=== PATIENT | male | born 1980 | race African-American/Black ===

== ENCOUNTER 2019-07-18 07:25 | Emergency (ER) | payer MEDICAID, OTHER | END 2019-07-18 08:18 | disposition left against medical advice (07) | LOC: ER 07:25 | DX: R07.9 Chest pain, unspecified (principal); Z53.21 Procedure and treatment not carried out due to patient leaving prior to being seen by health care provider ==

== ENCOUNTER 2019-09-22 04:00 | Emergency (ER) | payer MEDICAID ==
[~2019-09-22] VITALS: Ht 175.3 cm; Wt 118.0 kg
[2019-09-22] MEDS ORDERED: DICYCLOMINE 10 MG/5 ML ORAL SYR PO STA (04:17)
[2019-09-22] MEDS ORDERED: SODIUM CHLORIDE 0.9% 1,000 ML IV ONE (04:17)
[2019-09-22] MEDS ORDERED: ONDANSETRON HCL 4MG/2ML INJ IV STA (04:17)
[2019-09-22] MEDS ORDERED: KETOROLAC 15MG/ML VIAL IV ONE (04:30)
[2019-09-22 04:34] LABS: BASOPHILS % 0.5 % (0.0-2.0); EOSINOPHILS % 1.6 % (0.0-5.0); HEMATOCRIT. 48.3 % (42.0-52.0); HEMOGLOBIN. 16.7 g/dL (14.0-18.0); MEAN CORPUSCULAR HEMOGLOBIN 31.9 pg (28.0-32.0); MEAN CORPUSCULAR VOLUME 92.2 fL (80.0-94.0); MEAN PLATELET VOLUME 7.7 fl (7.4-10.4); MONOCYTES % 8.9 % (2.0-8.0); PLATELET 247 x1000/uL (130-400); RED BLOOD CELL COUNT 5.24 mill/uL (4.7-6.1); RED CELL DISTRIBUTION WIDTH 13.2 % (11.6-14.6)
[2019-09-22 04:48] LABS: CHLORIDE 109 mEq/L (98-107)
[2019-09-22 04:52] LABS: ETHANOL BLOOD < 10 mg/dL
[2019-09-22] MEDS ORDERED: MORPHINE SULFATE 4 MG/ML CPJ (NOT FOR IM USE) IV ONE ×2 (06:15→07:15)
[2019-09-22 07:09] LABS: CLARITY URINE CLEAR (CLEAR); COLOR URINE YELLOW (YELLOW); KETONES URINE NEGATIVE (NEGATIVE); LEUKOCYTE ESTERASE URINE 2+ (NEGATIVE); NITRITE URINE NEGATIVE (NEGATIVE); OCCULT BLOOD URINE NEGATIVE (NEGATIVE); PH URINE >=9.0 (4.5-8.0); PROTEIN URINE TRACE (NEGATIVE); SPECIFIC GRAVITY URINE 1.024 (1.005-1.030)
[2019-09-22 07:42] LABS: *AMPHETAMINES SCREEN URINE NEGATIVE (NEGATIVE); *BARBITURATES SCREEN URINE NEGATIVE (NEGATIVE); *BENZODIAZEPINES SCREEN URINE NEGATIVE (NEGATIVE); *COCAINE SCREEN URINE NEGATIVE (NEGATIVE)
[2019-09-22 07:43] LABS: CANNABINOID URINE SCREEN PRESUMTIVE POSITIVE (NEGATIVE); METHADONE URINE SCREEN NEGATIVE (NEGATIVE); OPIATES URINE SCREEN NEGATIVE (NEGATIVE); PHENCYCLIDINE URINE SCREEN NEGATIVE (NEGATIVE)
[2019-09-22] MEDS ORDERED: ONDANSETRON HCL 4MG/2ML INJ IV ONE (08:00)
[2019-09-22] MEDS ORDERED: MORPHINE SULFATE 2 MG/ML CPJ (NOT FOR IM USE) IV ONE (08:00)
[2019-09-22] MEDS ORDERED: ONDANSETRON HCL 4MG/2ML INJ IV NR (08:15)
[2019-09-22] MEDS ORDERED: MORPHINE SULFATE 2 MG/ML CPJ (NOT FOR IM USE) IV NR (08:15)
[2019-09-22] MEDS ORDERED: HYDROCODONE/ACETAMINOPHEN 10/325MG TABLET PO PRN (10:00)
[2019-09-22] MEDS ORDERED: DEXT 5%/0.45% NACL 1000ML 1,000 ML IV SCH (10:00)
[2019-09-22] MEDS ORDERED: ONDANSETRON HCL 4MG/2ML INJ IV PRN (10:00)
[2019-09-22] MEDS ORDERED: ACETAMINOPHEN 325MG TABLET PO PRN (10:00)
[2019-09-22] MEDS ORDERED: LEVOFLOXACIN 500MG PREMIX 100ML IV NR (10:15)
[2019-09-22] MEDS ORDERED: METRONIDAZOLE 500 MG PREMIX 100 ML IV NR (10:15)
[2019-09-22] MEDS ORDERED: HYDROMORPHONE HCL/PF 2MG/ML CPJ IV PRN (11:15)
[2019-09-22] MEDS ORDERED: MORPHINE SULFATE 2 MG/ML CPJ (NOT FOR IM USE) IV PRN (12:00)
[2019-09-22] MEDS ORDERED: LEVO500T2 MT (13:45)
[2019-09-22] MEDS ORDERED: METR500T MT (13:45)
[2019-09-22 13:52] VITALS: BP 131/69
[2019-09-22] MEDS ORDERED: METRONIDAZOLE 500 MG PREMIX 100 ML IV SCH (18:00)
[2019-09-23] MEDS ORDERED: LEVOFLOXACIN 500MG PREMIX 100 ML IV SCH (09:00)
== END 2019-09-22 14:26 | disposition left against medical advice (07) ==
LOC: ER 04:00 → ENRESERV 19:21 → CANRESERV 19:21 → CANBEDREQ 09-23 00:25
DX: K80.20 Calculus of gallbladder without cholecystitis without obstruction (principal); F12.90 Cannabis use, unspecified, uncomplicated; E87.8 Other disorders of electrolyte and fluid balance, not elsewhere classified; E66.9 Obesity, unspecified; Z68.38 Body mass index [BMI] 38.0-38.9, adult
CPT/HCPCS: 36415; 76705; 78227; 80053; 80305; 80320; 81003; 83690; 85025; 96365; 96368; 96375; 96376; 99285; A9537; J1885; J1956; J2270; J2405; J3490; J7030; G0480

== ENCOUNTER 2019-09-23 07:16 | Inpatient (IN) | payer MEDICAID ==
[~2019-09-23] VITALS: Ht 175.3 cm; Wt 122.5 kg
[~2019-09-23 07:16] MED LIST: LEVO500T2 MT; METR500T MT
[2019-09-23] MEDS ORDERED: SODIUM CHLORIDE 0.9% 1,000 ML IV ONE (08:39)
[2019-09-23] MEDS ORDERED: KETOROLAC 15MG/ML VIAL IV ONE (08:45)
[2019-09-23] MEDS ORDERED: METOCLOPRAMIDE HCL 10MG/2ML VIAL IV ONE (08:45)
[2019-09-23 09:40] LABS: BASOPHILS % 0.6 % (0.0-2.0); EOSINOPHILS % 0.3 % (0.0-5.0); HEMATOCRIT. 46.5 % (42.0-52.0); HEMOGLOBIN. 16.2 g/dL (14.0-18.0); LYMPHOCYTES % 9.5 % (20.0-50.0); MEAN CORPUSCULAR VOLUME 91.8 fL (80.0-94.0); MEAN PLATELET VOLUME 8.4 fl (7.4-10.4); MONOCYTES % 10.5 % (2.0-8.0); NEUTROPHILS % 79.1 % (40.0-76.0); PLATELET 245 x1000/uL (130-400); RED BLOOD CELL COUNT 5.06 mill/uL (4.7-6.1); RED CELL DISTRIBUTION WIDTH 13.3 % (11.6-14.6)
[2019-09-23 09:48] LABS: CHLORIDE 105 mEq/L (98-107)
[2019-09-23 10:30] LABS: CLARITY URINE CLEAR (CLEAR); COLOR URINE YELLOW (YELLOW); KETONES URINE 1+ (NEGATIVE); LEUKOCYTE ESTERASE URINE TRACE (NEGATIVE); NITRITE URINE NEGATIVE (NEGATIVE); OCCULT BLOOD URINE NEGATIVE (NEGATIVE); PH URINE >=9.0 (4.5-8.0); PROTEIN URINE NEGATIVE (NEGATIVE); SPECIFIC GRAVITY URINE 1.018 (1.005-1.030)
[2019-09-23] MEDS ORDERED: ACETAMINOPHEN 325MG TABLET PO PRN (12:45)
[2019-09-23] MEDS ORDERED: ONDANSETRON HCL 4MG/2ML INJ IV PRN (12:45)
[2019-09-23] MEDS ORDERED: LEVOFLOXACIN 500MG PREMIX 100 ML IV SCH (13:45)
[2019-09-23] MEDS: DEXT 5%/0.45% NACL 1000ML 1,000 ML IV SCH (13:50)
[2019-09-23] MEDS ORDERED: METRONIDAZOLE 500 MG PREMIX 100 ML IV SCH (14:00)
[2019-09-23] MEDS ORDERED: IOHEXOL-300 100 ML BOTTLE ONE (15:07)
[2019-09-23 22:40] VITALS: BP 145/66
[2019-09-23] MEDS: METRONIDAZOLE 500 MG PREMIX 100 ML IV SCH (23:35)
[2019-09-23] MEDS: METOCLOPRAMIDE HCL 10MG/2ML VIAL IV SCH (23:35)
[2019-09-24] VITALS: BP 130/85
[2019-09-24] MEDS: MORPHINE SULFATE 2 MG/ML CPJ (NOT FOR IM USE) IV PRN ×2 (03:07→16:52)
[2019-09-24 04:00] VITALS: BP 140/88
[2019-09-24] MEDS: METOCLOPRAMIDE HCL 10MG/2ML VIAL IV SCH ×3 (05:46→17:24)
[2019-09-24] MEDS: METRONIDAZOLE 500 MG PREMIX 100 ML IV SCH ×2 (06:12→17:23)
[2019-09-24 07:03] LABS: BASOPHILS % 0.2 % (0.0-2.0); EOSINOPHILS % 1.3 % (0.0-5.0); HEMATOCRIT. 42.1 % (42.0-52.0); HEMOGLOBIN. 14.7 g/dL (14.0-18.0); LYMPHOCYTES % 12.3 % (20.0-50.0); MEAN CORPUSCULAR HEMOGLOBIN 32.4 pg (28.0-32.0); MEAN CORPUSCULAR VOLUME 92.5 fL (80.0-94.0); MONOCYTES % 14.3 % (2.0-8.0); NEUTROPHILS % 71.9 % (40.0-76.0); PLATELET 204 x1000/uL (130-400); RED BLOOD CELL COUNT 4.55 mill/uL (4.7-6.1); RED CELL DISTRIBUTION WIDTH 13.2 % (11.6-14.6)
[2019-09-24 07:04] LABS: CHLORIDE 106 mEq/L (98-107)
[2019-09-24 08:00] VITALS: BP 123/74
[2019-09-24] MEDS: PANTOPRAZOLE SODIUM 40 MG/VIAL IV SCH (09:20)
[2019-09-24] MEDS ORDERED: POTASSIUM CHLORIDE 20MEQ TABLET SR PO SCH ×2 (10:00→13:00)
[2019-09-24] MEDS ORDERED: LEVOFLOXACIN 500MG PREMIX 100 ML IV SCH (11:00)
[2019-09-24 12:00] VITALS: BP 115/70
[2019-09-24] MEDS ORDERED: LACTULOSE 20G/30ML UDC PO SCH (12:45)
[2019-09-24 16:00] VITALS: BP 110/68
[2019-09-24] MEDS: DEXT 5%/0.45% NACL 1000ML 1,000 ML IV SCH (16:08)
[2019-09-24 20:38] VITALS: BP 98/51
[2019-09-25 00:16] VITALS: BP 99/56
[2019-09-25] MEDS: METOCLOPRAMIDE HCL 10MG/2ML VIAL IV SCH ×4 (00:57→18:00)
[2019-09-25] MEDS: METRONIDAZOLE 500 MG PREMIX 100 ML IV SCH ×3 (01:59→18:00)
[2019-09-25 04:30] VITALS: BP 97/63
[2019-09-25 07:51] LABS: HEMATOCRIT. 44.2 % (42.0-52.0); HEMOGLOBIN. 15.6 g/dL (14.0-18.0); MEAN CORPUSCULAR HEMOGLOBIN 32.8 pg (28.0-32.0); MEAN PLATELET VOLUME 7.9 fl (7.4-10.4); PLATELET 217 x1000/uL (130-400); RED BLOOD CELL COUNT 4.75 mill/uL (4.7-6.1)
[2019-09-25 08:00] VITALS: BP 112/68
[2019-09-25 08:01] LABS: CHLORIDE 105 mEq/L (98-107)
[2019-09-25] MEDS: PANTOPRAZOLE SODIUM 40 MG/VIAL IV SCH (09:04)
[2019-09-25 12:00] VITALS: BP 109/67
[2019-09-25] MEDS ORDERED: POTASSIUM CHLORIDE 20MEQ TABLET SR PO SCH (12:00)
[2019-09-25 12:06] LABS: PLATELET ESTIMATE NORMAL
[2019-09-25] MEDS: LEVOFLOXACIN 500MG PREMIX 100 ML IV SCH (13:20)
[2019-09-25] MEDS: DEXT 5%/0.45% NACL KCL 20MEQ/L 1,000 ML IV SCH (15:38)
[2019-09-25] MEDS ORDERED: LIDOCAINE HCL 1% 20ML VIAL (Pyxis) INJ ONE (15:46)
[2019-09-25] MEDS ORDERED: BUPIVACAINE HCL/PF 0.5% (5MG/ML) 10ML ONE (15:46)
[2019-09-25] MEDS ORDERED: BACITRACIN 50,000 UNITS/VIAL ONE (15:46)
[2019-09-25 16:00] VITALS: BP 102/68
[2019-09-25] MEDS ORDERED: SKIN ADHESIVE 0.7 GM EA TOP ONE (17:03)
[2019-09-25] MEDS ORDERED: ROCURONIUM BROMIDE 10MG/ML VIAL 5ML IV ONE (17:08)
[2019-09-25] MEDS ORDERED: NEOSTIGMINE METHYLSULFATE 1MG/ML 10 ML VIAL ONE (17:08)
[2019-09-25] MEDS ORDERED: PROPOFOL 200MG/20ML VIAL IV ONE (17:08)
[2019-09-25] MEDS ORDERED: FENTANYL CITRATE/PF 50MCG/ML 2ML VIAL ONE (17:08)
[2019-09-25] MEDS ORDERED: GLYCOPYRROLATE 0.2 MG/ML 2ML VIAL ONE (17:09)
[2019-09-25] MEDS ORDERED: MIDAZOLAM HCL 2 MG/2 ML VIAL ONE (17:09)
[2019-09-25] MEDS ORDERED: ONDANSETRON HCL 4MG/2ML INJ ONE (17:37)
[2019-09-25] MEDS ORDERED: HYDROMORPHONE HCL/PF 2MG/ML (OR) ONE (17:37)
[2019-09-25] MEDS ORDERED: DEXAMETHASONE 4MG/ML 1ML VIAL ONE (17:37)
[2019-09-25] MEDS ORDERED: LABETALOL 5MG/ML SYR 20 MG/4 ML SYRINGE IV PRN (19:00)
[2019-09-25] MEDS ORDERED: ONDANSETRON HCL 4MG/2ML INJ IV PRN (19:00)
[2019-09-25] MEDS ORDERED: MEPERIDINE HCL/PF 25MG/ML CPJ IV PRN (19:00)
[2019-09-25] MEDS ORDERED: HYDROMORPHONE HCL/PF 2MG/ML CPJ IV PRN (19:00)
[2019-09-25 20:00] VITALS: BP 122/75
[2019-09-25] MEDS: MORPHINE SULFATE 2 MG/ML CPJ (NOT FOR IM USE) IV PRN (22:16)
[2019-09-26] VITALS: BP 111/63
[2019-09-26] MEDS: METOCLOPRAMIDE HCL 10MG/2ML VIAL IV SCH ×5 (02:13→23:02)
[2019-09-26] MEDS: METRONIDAZOLE 500 MG PREMIX 100 ML IV SCH ×3 (02:16→17:46)
[2019-09-26] MEDS: MORPHINE SULFATE 2 MG/ML CPJ (NOT FOR IM USE) IV PRN ×5 (03:39→21:12)
[2019-09-26 04:40] VITALS: BP 110/61
[2019-09-26 08:00] VITALS: BP 136/70
[2019-09-26] MEDS: FAMOTIDINE 20MG/2ML VIAL IV SCH ×2 (08:47→21:12)
[2019-09-26] MEDS: DEXT 5%/0.45% NACL KCL 20MEQ/L 1,000 ML IV SCH ×3 (11:55→21:21)
[2019-09-26] MEDS: LEVOFLOXACIN 500MG PREMIX 100 ML IV SCH (11:55)
[2019-09-26 12:00] VITALS: BP 127/71
[2019-09-26 15:54] LABS: HEMATOCRIT. 45.2 % (42.0-52.0); HEMOGLOBIN. 15.7 g/dL (14.0-18.0); MEAN CORPUSCULAR HEMOGLOBIN 32.1 pg (28.0-32.0); MEAN CORPUSCULAR VOLUME 92.7 fL (80.0-94.0); MEAN PLATELET VOLUME 7.7 fl (7.4-10.4); PLATELET 268 x1000/uL (130-400); RED BLOOD CELL COUNT 4.88 mill/uL (4.7-6.1); RED CELL DISTRIBUTION WIDTH 13.1 % (11.6-14.6)
[2019-09-26 15:59] LABS: CHLORIDE 102 mEq/L (98-107)
[2019-09-26 16:56] VITALS: BP 115/61
[2019-09-26 17:49] LABS: PLATELET ESTIMATE NORMAL
[2019-09-26 20:00] VITALS: BP 110/62
[2019-09-27] VITALS: BP 116/71
[2019-09-27] MEDS: MORPHINE SULFATE 2 MG/ML CPJ (NOT FOR IM USE) IV PRN ×3 (01:32→09:31)
[2019-09-27] MEDS: METRONIDAZOLE 500 MG PREMIX 100 ML IV SCH ×2 (02:24→09:30)
[2019-09-27 04:00] VITALS: BP 123/65
[2019-09-27] MEDS: METOCLOPRAMIDE HCL 10MG/2ML VIAL IV SCH (05:58)
[2019-09-27 07:03] LABS: BASOPHILS % 0.5 % (0.0-2.0); EOSINOPHILS % 0.6 % (0.0-5.0); HEMATOCRIT. 43.3 % (42.0-52.0); HEMOGLOBIN. 15.1 g/dL (14.0-18.0); LYMPHOCYTES % 14.2 % (20.0-50.0); MEAN CORPUSCULAR HEMOGLOBIN 31.9 pg (28.0-32.0); MEAN CORPUSCULAR VOLUME 91.5 fL (80.0-94.0); MEAN PLATELET VOLUME 8.3 fl (7.4-10.4); MONOCYTES % 12.5 % (2.0-8.0); NEUTROPHILS % 72.2 % (40.0-76.0); PLATELET 279 x1000/uL (130-400); RED BLOOD CELL COUNT 4.73 mill/uL (4.7-6.1); RED CELL DISTRIBUTION WIDTH 12.7 % (11.6-14.6)
[2019-09-27 07:26] LABS: CHLORIDE 103 mEq/L (98-107)
[2019-09-27 08:00] VITALS: BP 128/65
[2019-09-27] MEDS: FAMOTIDINE 20MG/2ML VIAL IV SCH (09:30)
[2019-09-27 11:37] VITALS: BP 128/65
== END 2019-09-27 12:26 | disposition home or self-care (01) | DRG 263 ==
LOC: ER 07:16 → EDBEDREQTM 11:19 → EDBEDREQ 11:19 → EDBEDREQTM 12:08 → EDBEDREQSVC 12:08 → 6EST 12:27 → EDBEDREQTM 12:30 → EDBEDREQ 12:30 → ENRESERV 20:48 → 6EST 23:16
PROVIDERS: ADMIT Internal Medicine; ATTEND Internal Medicine
PROC: 0FT44ZZ Resection of Gallbladder, Percutaneous Endoscopic Approach (ICD-10-PCS; principal; 2019-09-25)
DX: K80.00 Calculus of gallbladder with acute cholecystitis without obstruction (principal); R16.0 Hepatomegaly, not elsewhere classified; F12.90 Cannabis use, unspecified, uncomplicated; J45.909 Unspecified asthma, uncomplicated; F17.210 Nicotine dependence, cigarettes, uncomplicated; E66.9 Obesity, unspecified; Z79.899 Other long term (current) drug therapy; Z79.2 Long term (current) use of antibiotics; Z71.3 Dietary counseling and surveillance; Z68.39 Body mass index [BMI] 39.0-39.9, adult; Z03.818 Encounter for observation for suspected exposure to other biological agents ruled out
CPT/HCPCS: 36415; 74177; 76705; 80048; 80053; 80076; 81003; 82248; 85025; 87070; 87075; 88304; 96365; 99285; C9113; J1100; J1170; J1885; J1956; J2250; J2270; J2405; J2704; J2710; J2765; J3010; J3490; J7030; Q9967; U0003-CS

== ENCOUNTER 2019-12-02 07:03 | Emergency (ER) | payer MEDICAID ==
[~2019-12-02] VITALS: Ht 180.3 cm; Wt 115.0 kg
[2019-12-02] MEDS ORDERED: KETOROLAC 30MG/ML VIAL IV STA (08:15)
[2019-12-02] MEDS ORDERED: SODIUM CHLORIDE 0.9% 1,000 ML IV ONE (08:15)
[2019-12-02 08:45] LABS: BASOPHILS % 0.3 % (0.0-2.0); EOSINOPHILS % 0.5 % (0.0-5.0); HEMATOCRIT. 48.3 % (42.0-52.0); HEMOGLOBIN. 16.4 g/dL (14.0-18.0); LYMPHOCYTES % 7.7 % (20.0-50.0); MEAN CORPUSCULAR VOLUME 94.2 fL (80.0-94.0); MEAN PLATELET VOLUME 7.5 fl (7.4-10.4); NEUTROPHILS % 85.5 % (40.0-76.0); PLATELET 239 x1000/uL (130-400); RED BLOOD CELL COUNT 5.13 mill/uL (4.7-6.1); RED CELL DISTRIBUTION WIDTH 14.7 % (11.6-14.6)
[2019-12-02 08:47] LABS: CLARITY URINE CLEAR (CLEAR); COLOR URINE YELLOW (YELLOW); KETONES URINE TRACE (NEGATIVE); LEUKOCYTE ESTERASE URINE 1+ (NEGATIVE); NITRITE URINE NEGATIVE (NEGATIVE); OCCULT BLOOD URINE 1+ (NEGATIVE); PH URINE 5.5 (4.5-8.0); PROTEIN URINE NEGATIVE (NEGATIVE); SPECIFIC GRAVITY URINE 1.022 (1.005-1.030)
[2019-12-02 08:48] LABS: CHLORIDE 110 mEq/L (98-107)
[2019-12-02 08:51] LABS: PROTHROMBIN TIME 10.7 sec (9.6-11.0)
[2019-12-02 10:45] VITALS: BP 132/78
== END 2019-12-02 11:15 | disposition home or self-care (01) ==
LOC: ER 07:03
DX: N23 Unspecified renal colic (principal); Z98.890 Other specified postprocedural states
CPT/HCPCS: 36415; 74176; 80053; 81003; 85025; 85610; 87086; 93005; 96374; 99285; J1885; J7030